=== PATIENT | male | born 1950 | race Caucasian/White ===

== ENCOUNTER → 2018-07-07 | Outpatient (CLI) | payer MEDICARE, BC ==
[~2018-07-07] MED LIST: FISH OIL PO; METFORMIN PO; MULT-516 PO; PRED1TAB PO
== END | disposition home or self-care (01) ==
LOC: CFH 12:34
PROVIDERS: ATTEND Otolaryngology Facial Plastic Surgery
DX: J32.0 Chronic maxillary sinusitis (principal); J34.89 Other specified disorders of nose and nasal sinuses
CPT/HCPCS: 70486

== ENCOUNTER → 2019-01-05 | Outpatient (CLI) | payer MEDICARE, BC ==
[~2019-01-05] MED LIST changes: +ALBU8.5H8 INH; +ALLO300T PO; +BUDE1AMP NS; +INSU100I13 SC; +MEPO100V INJ; +MOME13HF2 INH; +POTA15TA9 PO
[2019-01-05 13:32] LABS: ALBUMIN 3.5 g/dL (3.4-5.0); ANION GAP 7 mmol/L (5-15); CALCIUM 8.9 mg/dL (8.5-10.1); CHLORIDE 108 mmol/L (98-107)
[2019-01-05 13:35] LABS: ALANINE AMINOTRANSFERASE 17 U/L (12-78); ALKALINE PHOSPHATASE 62 U/L (45-117); BILIRUBIN,TOTAL 0.3 mg/dL (0.2-1.0); CREATININE 1.26 mg/dL (0.7-1.3)
== END | disposition home or self-care (01) ==
LOC: STAR 11:53
PROVIDERS: ATTEND Otolaryngology
DX: Z01.818 Encounter for other preprocedural examination (principal); I45.10 Unspecified right bundle-branch block; J32.2 Chronic ethmoidal sinusitis; J32.1 Chronic frontal sinusitis; J32.0 Chronic maxillary sinusitis; Z88.0 Allergy status to penicillin; Z88.2 Allergy status to sulfonamides; Z88.8 Allergy status to other drugs, medicaments and biological substances
CPT/HCPCS: 36415; 80053; 93005

== ENCOUNTER 2019-01-13 06:29 | Observation (INO) | payer MEDICARE, BC ==
[~2019-01-13] VITALS: Ht 185.4 cm; Wt 124.7 kg
[2019-01-13] MEDS ORDERED: BACITRACIN OINT 500U/GM, 15 GM ONE (06:59)
[2019-01-13] MEDS ORDERED: EPINEPHRINE 1 MG/ML, 1ML ONE (06:59)
[2019-01-13] MEDS ORDERED: EPINEPHRINE TOPICAL SOLN 1 MG/ML, 30ML ONE (06:59)
[2019-01-13] MEDS ORDERED: OXYMETAZOLINE NASAL SPRAY 0.05%, 15ML ONE (06:59)
[2019-01-13] MEDS ORDERED: BACITRACIN 50,000 UNIT ONE (07:00)
[2019-01-13] MEDS ORDERED: LIDOCAINE 1%, 20ML ONE (07:00)
[2019-01-13] MEDS ORDERED: LACTATED RINGERS 1,000 ML IV SCH (07:02)
[2019-01-13] MEDS ORDERED: FLUORESCEIN SODIUM 500 MG/5 ML ONE (07:28)
[2019-01-13] MEDS ORDERED: FENTANYL PF 250 MCG/5ML ONE (07:34)
[2019-01-13] MEDS ORDERED: MIDAZOLAM 1 MG/ML, 2ML ONE (07:34)
[2019-01-13] MEDS ORDERED: PROPOFOL 10 MG/ML, 20ML ONE (08:52)
[2019-01-13] MEDS ORDERED: CEFAZOLIN 1,000 MG ONE (08:52)
[2019-01-13] MEDS ORDERED: ROCURONIUM 10 MG/ML,10ML ONE (08:52)
[2019-01-13] MEDS ORDERED: SUCCINYLCHOLINE 20 MG/ML, 10ML ONE (08:52)
[2019-01-13] MEDS ORDERED: KETOROLAC 30 MG/1 ML ONE (11:21)
[2019-01-13] MEDS ORDERED: OXYcodone 5 MG/5 ML ORAL.SOL UDC ONE (11:22)
[2019-01-13] MEDS ORDERED: LABETALOL 5MG/ML, 20ML IV PRN (11:30)
[2019-01-13] MEDS ORDERED: MEPERIDINE/PF 25MG/0.5ML IVPush PRN (11:30)
[2019-01-13] MEDS ORDERED: KETOROLAC 30 MG/1 ML IV PRN (11:30)
[2019-01-13] MEDS ORDERED: HYDROmorphone 1 MG/ML, 1ML INJ IV PRN (11:30)
[2019-01-13] MEDS ORDERED: FENTANYL PF 100 MCG/2ML IV PRN (11:30)
[2019-01-13] MEDS ORDERED: PROMETHAZINE 25 MG/ML, 1ML IV PRN (11:30)
[2019-01-13] MEDS ORDERED: ONDANSETRON 2MG/ML, 2ML IVPush PRN ×2 (11:30→14:00)
[2019-01-13] MEDS ORDERED: hydrALAzine 20 MG/ML, 1ML IV PRN (11:30)
[2019-01-13] MEDS ORDERED: METOCLOPRAMIDE 5 MG/ML, 2ML IV PRN (11:30)
[2019-01-13] MEDS ORDERED: OXYcodone 5 MG/5 ML ORAL.SOL UDC PO PRN (11:30)
[2019-01-13] MEDS ORDERED: ALBUTEROL SULFATE 2.5 MG/3 ML NPPB PRN ×2 (11:30→13:30)
[2019-01-13] MEDS ORDERED: ALBUTEROL SULFATE 2.5 MG/3 ML ONE (11:35)
[2019-01-13 12:54] VITALS: BP 129/76
[2019-01-13] MEDS ORDERED: LEVOFLOXACIN 500 MG TABLET PO SCH ×2 (13:39→14:00)
[2019-01-13 13:52] LABS: BASOPHILS # (AUTO) 0.01 x10^3/uL (0-0.1); BASOPHILS % (AUTO) 0 % (0-1); EOSINOPHILS # (AUTO) 0.11 x10^3/uL (0-0.4); EOSINOPHILS % (AUTO) 1 % (1-7); LYMPHOCYTES # (AUTO) 0.84 x10^3/uL (1-3.4); LYMPHOCYTES % (AUTO) 9 % (22-44); MD NO; MEAN CORPUSCULAR HEMOGLOBIN 29.7 pg (27.5-34.5); MEAN CORPUSCULAR VOLUME 87.4 fL (81-97); MEAN PLATELET VOLUME 6.5 fL (7.4-10.4); MONOCYTES # (AUTO) 0.46 x10^3/uL (0.2-0.8); MONOCYTES % (AUTO) 5 % (2-9); NEUTROPHILS # (AUTO) 7.58 x10^3/uL (1.8-6.8); NEUTROPHILS % (AUTO) 84 % (42-75); PLATELET COUNT 221 x10^3/uL (130-400); RED BLOOD COUNT 4.26 x10^6/uL (4.38-5.82); RED CELL DISTRIBUTION WIDTH 14.1 % (9.4-14.8)
[2019-01-13 13:59] LABS: ALANINE AMINOTRANSFERASE 16 U/L (12-78); ALBUMIN 3.1 g/dL (3.4-5.0); ANION GAP 6 mmol/L (5-15); CHLORIDE 113 mmol/L (98-107); CREATININE 1.27 mg/dL (0.7-1.3)
[2019-01-13] MEDS ORDERED: ACETAMINOPHEN 325 MG TABLET PO PRN (14:00)
[2019-01-13] MEDS ORDERED: HYDROcodone/APAP 5/325 TABLET PO PRN (14:00)
[2019-01-13] MEDS ORDERED: MORPHINE SULFATE 4 MG/ML, 1ML IVPush PRN (14:00)
[2019-01-13 14:02] LABS: ALKALINE PHOSPHATASE 49 U/L (45-117); BILIRUBIN,TOTAL 0.3 mg/dL (0.2-1.0); TOTAL PROTEIN 6.1 g/dL (6.4-8.2)
[2019-01-13] MEDS ORDERED: DEXTROSE 50%, 50ML SYRINGE IVPush PRN (17:30)
[2019-01-13] MEDS ORDERED: GLUCAGON 1 MG IM PRN (17:30)
[2019-01-13] MEDS ORDERED: DEXTROSE 4 GM TAB.CHEW PO PRN (17:30)
[2019-01-13 20:17] VITALS: BP 128/71
[2019-01-13] MEDS: LACTATED RINGERS 1,000 ML IV SCH (20:30)
[2019-01-13] MEDS: POTASSIUM CITRATE 15 MEQ PO SCH (21:00)
[2019-01-13] MEDS ORDERED: INSULIN GLARGINE 100 UNITS/ML, PEN SQ-INSULIN SCH ×2 (21:00)
[2019-01-13] MEDS: DULERA INH SCH (21:00)
[2019-01-13] MEDS: SODIUM CHLORIDE FLUSH 10ML SYR IVF SCH (21:00)
[2019-01-13] MEDS: INSULIN LISPRO 100 UNITS/ML, PEN SQ-INSULIN SCH (21:23)
[2019-01-13 23:14] VITALS: BP 136/71
[2019-01-14 03:27] VITALS: BP 113/81
[2019-01-14 05:43] LABS: BASOPHILS # (AUTO) 0.01 x10^3/uL (0-0.1); BASOPHILS % (AUTO) 0 % (0-1); EOSINOPHILS % (AUTO) 0 % (1-7); LYMPHOCYTES # (AUTO) 0.72 x10^3/uL (1-3.4); LYMPHOCYTES % (AUTO) 8 % (22-44); MD NO; MEAN CORPUSCULAR HGB CONC 34.3 g/dL (33.2-36.2); MEAN CORPUSCULAR VOLUME 87.5 fL (81-97); MEAN PLATELET VOLUME 6.8 fL (7.4-10.4); MONOCYTES # (AUTO) 0.67 x10^3/uL (0.2-0.8); MONOCYTES % (AUTO) 7 % (2-9); NEUTROPHILS # (AUTO) 7.57 x10^3/uL (1.8-6.8); NEUTROPHILS % (AUTO) 84 % (42-75); PLATELET COUNT 208 x10^3/uL (130-400); RED BLOOD COUNT 4.26 x10^6/uL (4.38-5.82); RED CELL DISTRIBUTION WIDTH 14.5 % (9.4-14.8)
[2019-01-14 05:59] LABS: ALANINE AMINOTRANSFERASE 14 U/L (12-78); ALBUMIN 3.1 g/dL (3.4-5.0); ANION GAP 8 mmol/L (5-15); CALCIUM 8.4 mg/dL (8.5-10.1); CHLORIDE 110 mmol/L (98-107); CREATININE 1.12 mg/dL (0.7-1.3)
[2019-01-14 06:01] LABS: ALKALINE PHOSPHATASE 50 U/L (45-117); BILIRUBIN,TOTAL 0.5 mg/dL (0.2-1.0); TOTAL PROTEIN 6.1 g/dL (6.4-8.2)
[2019-01-14] MEDS: LACTATED RINGERS 1,000 ML IV SCH (06:30)
[2019-01-14] MEDS: INSULIN LISPRO 100 UNITS/ML, PEN SQ-INSULIN SCH (07:00)
[2019-01-14 08:29] VITALS: BP 104/77
[2019-01-14 08:32] LABS: HEMOGLOBIN A1C 7.6 % (4.2-6.3)
[2019-01-14] MEDS ORDERED: ALBUTEROL/IPRATROPIUM 2.5MG/0.5MG, 3 ML NPPB SCH (09:00)
[2019-01-14] MEDS: POTASSIUM CITRATE 15 MEQ PO SCH (09:00)
[2019-01-14] MEDS ORDERED: BUDESONIDE 0.5 MG/2 ML INHA INH SCH (09:00)
[2019-01-14] MEDS ORDERED: ALLOPURINOL 300 MG TABLET PO SCH (09:00)
[2019-01-14] MEDS: DULERA INH SCH (09:00)
[2019-01-14] MEDS ORDERED: MULTIVITAMIN 1 TABLET PO SCH (09:00)
[2019-01-14] MEDS: SODIUM CHLORIDE FLUSH 10ML SYR IVF SCH (09:24)
[2019-01-14] MEDS ORDERED: LEVO500T47 PO (09:51)
== END 2019-01-14 11:50 | disposition home or self-care (01) ==
LOC: OUT 06:29 → 4NOR 12:24 → OUT 12:56 → 4NOR 12:56 → DCLOUNGE 01-14 11:43
PROVIDERS: ADMIT Otolaryngology; ATTEND Otolaryngology
DX: J32.9 Chronic sinusitis, unspecified (principal); J34.89 Other specified disorders of nose and nasal sinuses; E11.9 Type 2 diabetes mellitus without complications; F41.9 Anxiety disorder, unspecified; J45.909 Unspecified asthma, uncomplicated; D64.9 Anemia, unspecified; J02.9 Acute pharyngitis, unspecified; Z87.442 Personal history of urinary calculi
CPT/HCPCS: 31240; 31259; 36415; 71045; 80053; 82962; 83036; 83735; 84100; 85025; 88304; 88311; 94640; 96372; G0378; J0171; J0330; J0690; J1815; J1885; J2250; J2704; J3010; J3490; J7120; J7613; J7620; J7626

== ENCOUNTER → 2019-11-05 | Outpatient (CLI) | payer MEDICARE, BC ==
[~2019-11-05] MED LIST changes: +LEVO500T47 PO; -PRED1TAB PO; +PRED1TAB19 PO
== END | disposition home or self-care (01) ==
LOC: RAD 13:34
PROVIDERS: ATTEND Otolaryngology
DX: K20.8 Other esophagitis (principal)
CPT/HCPCS: 74220

== ENCOUNTER → 2021-04-24 | Outpatient (CLI) | payer MEDICARE, BC | END | disposition home or self-care (01) | LOC: CFH 12:06 | PROVIDERS: ATTEND Internal Medicine Cardiovascular Disease | DX: I06.1 Rheumatic aortic insufficiency (principal); E11.9 Type 2 diabetes mellitus without complications | CPT/HCPCS: 78452; 93017; 93306; A9502 ==